=== PATIENT | male | born 1930 | race Caucasian/White ===

== ENCOUNTER → 2016-11-16 | Outpatient (CLI) | payer OTHER, MEDICARE ==
[~2016-11-16] VITALS: Ht 165.1 cm; Wt 60.3 kg
[~2016-11-16] MED LIST: ACCUPRIL PO; ALENDRONATE PO; APAP500 PO; ASPIR 8181 MG PO; ASPIRIN EC81 M1 PO; ATORVASTATIN CA40 MG PO; CENTRUM SILVER1 EAC1 PO; COLACE100 MG PO; FISH OIL 1,2001 EAC3 PO; FLEXERIL PO; FLOMAX PO; FLOMAX0.4 MG PO; HYDROCHLOROTH12.5 M1 PO; HYDROCODONE-AP1 EAC6 PO; HYDRODIURIL PO; KEFLEX250 MG PO; LASIX 40 MG TAB40 M2 PO; LIPITOR40 MG PO; LODINE 200MG C200 M1 PO; LODINE PO; LODINE XL400 MG PO; LODINE300 MG PO; MICROZIDE12.5 MG PO; MIRALAX255 GM PO; NORVASC10 MG PO; PEPCID20 MG PO; PLAVIX 75 MG TA75 MG PO; POTASSIUM20 PO; QUINU10 PD PO; TAMSULOSIN HCL0.4 M1 PO; TRAMADOL 50 MG50 MG PO; TRAVATAN 0.004%5 ML; VIACTIV MULTI-1 EACH; VITAMIN D1000 UNI2 PO; VITAMIN D2000 UNI1 PO; XALATAN2.5 ML OPHTHALMIC
--- NOTE | ~2016-11-16 | HPC ---
[facility] [address] [place] [address] PAIN MANAGEMENT CONSULTATION Name: UMAIR POLANCO Room #: REG WILLI Virgen#: [id number] Admission: 11/16/16 Attend Phys: Yair Morgan DO Discharge: Date of : 34 Report #: [id number] THIS REPORT FOR: //name// CC: Balta Morgan HISTORY OF PRESENT ILLNESS: The patient is a very pleasant 85-year-old retired [employer], well known to the pain clinic. He has been treated for symptomatic lumbar radiculopathy secondary to spinal stenosis and fusion, history of left sacroiliac joint dysfunction by history. He was given a left L3-L4 transforaminal epidural injection on 04/06/2016, had only nominal relief, 25% or so, but does note, however, that radicular pain is fairly nominal. His primary pain now is pain in the left low back, it is in the SI area. He does have lumbar fusion at L4-L5. He does have a positive Miguel test on the left with a modestly antalgic gait. Straight leg raise is negative. 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 RECOMMENDATIONS: Left SI joint injection under fluoroscopy. Follow up as needed. Continue core strengthening, we talked about doing plank-type exercises. PROCEDURE NOTE: Left SI joint injection under fluoroscopy. After written informed consent was obtained, the patient taken to the fluoroscopy suite, placed in a prone position. After sterile prep and drape, skin wheal was raised. A 22-gauge stylet needle was placed to contact the inferior aspect of the left SI joint. Negative aspiration was accomplished, 40 mg triamcinolone plus 2 mL of 0.5% preservative-free bupivacaine was injected into and around the left SI joint. Needle was removed. The area was cleansed, Band-Aids applied. The patient was monitored for an appropriate period of time, discharged in good and stable condition. By: 1603 2038 Yair Morgan DO /nt
[2016-11-16 14:31] VITALS: BP 140/61
== END | disposition home or self-care (01) ==
LOC: PAIN 07:16
DX: M53.3 Sacrococcygeal disorders, not elsewhere classified (principal); M47.897 Other spondylosis, lumbosacral region; G89.29 Other chronic pain

== ENCOUNTER → 2017-06-03 | Outpatient (CLI) | payer OTHER, MEDICARE | LOC: CAT 10:32 | DX: S33.130A Subluxation of L3/L4 lumbar vertebra, initial encounter (principal); M47.896 Other spondylosis, lumbar region; M48.061 Spinal stenosis, lumbar region without neurogenic claudication; X58.XXXA Exposure to other specified factors, initial encounter; Y93.89 Activity, other specified; Y92.89 Other specified places as the place of occurrence of the external cause; Y99.8 Other external cause status ==

== ENCOUNTER → 2017-09-24 | Outpatient (CLI) | payer OTHER, MEDICARE ==
[~2017-09-24] MED LIST changes: +IMDUR 30 MG TAB30 M1 PO; +METOPROLOL SUCC25 M1 PO; +NORVASC 5 MG TAB5 MG PO; +PRINIVIL5 MG PO; +ZETIA10 MG PO
== END ==
LOC: RAD 09:14
DX: I51.7 Cardiomegaly (principal)

== ENCOUNTER 2017-11-21 23:32 | Inpatient (IN) | payer OTHER, MEDICARE ==
[~2017-11-21] VITALS: Ht 160 cm; Wt 59.0 kg
--- NOTE | ~2017-11-21 | EKG ---
[place] [address] [facility] [place] [address] ELECTROCARDIOGRAM REPORT Name: UMAIR POLANCO Room #: 218-P ADM IN M.R.#: [id number] Admission: 11/22/17 Attend Phys: Sree Villalta MD Discharge: Date of : 34 Report #: [id number] THIS REPORT FOR: //name// [facility] Test Date: 2017-11-22 Test Time: 09:08:39 Pat Name: UMAIR POLANCO Department: Room: 218 P Gender: M Social Media Executive: Marleny ROBERT : 1930 Requested By: Marie Villarreal Order Number: [id number] MD: Faustino Sheehan Measurements Intervals [place] Rate: 90 P: 0 MD: 226 QRS: -76 QRSD: 180 T: 115 QT: 406 QTc: 497 Interpretive Statements Ventricular-paced rhythm No further analysis attempted due to paced rhythm Compared to ECG 01/28/2015 07:38:15 No significant changes Electronically Signed On 11-22-2017 13:31:20 CDT by Faustino Sheehan [email or web address] <ELECTRONICALLY SIGNED> By: Faustino Sheehan MD, [facility] 11/22/17 1331 [id number] Faustino Sheehan MD, [facility] /EPI
--- NOTE | ~2017-11-21 | 2DMMODE ---
[facility] [address] [place] [address] 2 D/M-MODE ECHOCARDIOGRAM Name: UMAIR POLANCO Room #: 218-P [facility] IN ..#: [id number] Admission: 11/22/17 Attend Phys: Sree Villalta MD Discharge: Date of : 34 Date of Service: 11/22/17 1108 Report #: [id number] THIS REPORT FOR: //name// APPROVED REPORT Study performed: 11/22/2017 10:25:10 EXAM: Comprehensive 2D, Doppler, and color-flow Echocardiogram Patient Location: Echo lab Room #: 218 Status: routine BSA: 1.62 HR: 96 bpm BP: 104/65 mmHg Rhythm: Pacemaker Other Information Study Quality: Good Indications Short of breath, HTN, elevated troponin. Hx: CABG, stent, pacemaker 2D Dimensions RVDd: 41.35 mm LVEF(%): 20.04 (>50%) IVSd: 14.16 (7-11mm) LVOT Diam: 21.05 (18-24mm) LVDd: 50.13 mm PWd: 8.22 (7-11mm) LVDs: 45.55 (25-40mm) Aortic Root: 33.51 mm Reed's LVEF: 20.04 % Volumes Left Atrial Volume (Systole) Single Plane 4CH: 68.31 mL Single Plane 2CH: 57.43 mL LA ESV Index: 44.00 mL/m2 Aortic Valve AoV Peak Baron.: 0.85 m/s AO Peak Gr.: 2.91 mmHg LVOT Max P.86 mmHg LVOT Max V: 0.68 m/s JOSÉ MIGUEL Vmax: 2.78 cm2 Mitral Valve MV Decel. Time: 125.12 ms [facility] [place] [place] [address] 2 D/M-MODE ECHOCARDIOGRAM Name: UMAIR POLANCO Room #: 218-[facility] IN ..#: [id number] Admission: 11/22/17 Attend Phys: Sree Villalta MD Discharge: Date of : 34 Date of Service: 11/22/17 1108 Report #: [id number] E Max Baron.: 1.53 m/s Pulmonary Valve PV Peak Baron.: 0.94 m/s PV Peak Gr.: 3.53 mmHg Tricuspid Valve TR Peak Baron.: 3.03 m/s RAP Estimate: 10.00 mmHg TR Peak Gr.: 36.79 mmHg PA Pressure: 47.00 mmHg Left Ventricle The left ventricle is normal size. Mild basal septal hypertrophy is present. Left ventricular systolic function is severely decreased. LVEF is 25%. Global hypokinesis, inferolateral wall akinetic This study is not technically sufficient to allow evaluation of the LV diastolic function. Right Ventricle The right ventricle is normal size. Right ventricle is hypokinetic. Pacemaker lead is present in the right ventricle. Atria Left atrium is moderately dilated. The right atrium size is normal. Aortic Valve The aortic valve is normal in structure. No aortic regurgitation. There is no aortic valvular stenosis. Mitral Valve The mitral valve is normal in structure. Moderate to severe mitral regurgitation Tricuspid Valve The tricuspid valve is normal in structure. Moderate tricuspid regurgitation. Estimated PAP is 45-50mmHg. Pulmonic Valve The pulmonary valve is normal in structure. Mild to moderate pulmonic regurgitation. Great Vessels The aortic root is normal in size. Ascending aorta is not well visualized. IVC is dilated and collapses <50% with inspiration. [facility] [address] [place] [address] 2 D/M-MODE ECHOCARDIOGRAM Name: UMAIR POLANCO Room #: 218-P [facility] IN .R.#: [id number] Admission: 11/22/17 Attend Phys: Sree Villalta MD Discharge: Date of : 34 Date of Service: 11/22/17 1108 Report #: [id number] Pericardium There is no pericardial effusion. <Conclusion> Left ventricular systolic function is severely decreased. LVEF 25%. Global hypokinesis, inferolateral wall akinetic Left atrium is moderately dilated. The aortic valve is normal in structure. No aortic valvular stenosis or insufficiency. The mitral valve is normal in structure. Moderate to severe mitral regurgitation Pacemaker lead is present in the right ventricle. Moderate tricuspid regurgitation. Estimated pulmonary artery pressure of 45-50mmHg. There is no pericardial effusion. <ELECTRONICALLY SIGNED> By: Faustino Sheehan MD, FACC 11/22/17 1108 1108 1108 Faustino Sheehan MD, FACC /INF
--- NOTE | ~2017-11-21 | EKG ---
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 : 1930 Requested By: Rena Cox Order Number: [id number] MD: Faustino Sheehan Measurements Intervals [place] Rate: 97 P: 213 NV: 199 QRS: -78 QRSD: 178 T: 108 QT: 427 QTc: 543 Interpretive Statements Ventricular-paced rhythm No further analysis attempted due to paced rhythm Compared to ECG 01/28/2015 07:38:15 No significant changes Electronically Signed On 11-22-2017 13:26:39 CDT by Faustino Sheehan [email or web address] <ELECTRONICALLY SIGNED> By: Faustino Sheehan MD, [facility] 11/22/17 1326 [id number] Faustino Sheehan MD, [facility] /EPI
[2017-11-21 23:32] VITALS: BP 115/65
[~2017-11-21 23:32] MED LIST changes: -IMDUR 30 MG TAB30 M1 PO; -METOPROLOL SUCC25 M1 PO; -NORVASC 5 MG TAB5 MG PO; -PRINIVIL5 MG PO; -ZETIA10 MG PO
[2017-11-21 23:59] LABS: ABSOLUTE NEUTROPHILS 5.1 thou/uL (1.4-8.2); BASOPHILS 0.6 % (0.0-2.0); EOSINOPHILS 1.1 % (0.0-3.0); HEMATOCRIT 39.8 % (42.0-52.0); HEMOGLOBIN 13.6 gm/dL (14.0-18.0); LYMPHOCYTES 24.5 % (24.0-44.0); MCH 32.2 pg (26.0-34.0); MCHC 34.2 g/dL (28.0-37.0); MCV 94.2 fL (80.0-100.0); MONOCYTES 9.3 % (1.0-8.0); PLATELET COUNT 238 thou/uL (150-400); POLYS 64.5 % (36.0-66.0); RBC 4.22 mil/uL (4.50-6.00); RDW 14.2 % (10.5-14.5); WBC 7.9 thou/uL (4.0-11.0)
[2017-11-22 00:07] LABS: CALCIUM 9.4 mg/dL (8.5-10.1); CREATININE 1.3 mg/dL (0.7-1.3); POTASSIUM 4.1 mmol/L (3.5-5.1)
[2017-11-22 00:15] LABS: TROPONIN-I 0.39 ng/mL (<0.06)
[2017-11-22] MEDS ORDERED: ZETIA10 MG PO (01:57)
[2017-11-22 02:06] VITALS: BP 110/62
[2017-11-22 02:30] VITALS: BP 94/81
[2017-11-22 06:30] LABS: CHOLESTEROL 100 mg/dL (<200); HDL CHOLESTEROL 37 mg/dL (>40); LDL CHOLESTEROL 40 mg/dL (<100); TC:HDL 2.7 Ratio (Not establshd); TRIGLYCERIDE 118 mg/dL (<150); VLDL 24 mg/dL (<40)
[2017-11-22 07:15] VITALS: BP 104/65
[2017-11-22 11:22] VITALS: BP 99/52
[2017-11-22 15:32] VITALS: BP 97/56
[2017-11-22 21:08] LABS: GLYCOHEMOGLOBIN (HGB A1C) 5.7 % (4.8-5.6)
[2017-11-22 22:02] VITALS: BP 103/67
[2017-11-23 04:31] VITALS: BP 103/65
[2017-11-23 07:52] VITALS: BP 114/71
[2017-11-23 10:46] VITALS: BP 106/69
[2017-11-23] MEDS ORDERED: IMDUR 30 MG TAB30 M1 PO (10:49)
[2017-11-23] MEDS ORDERED: METOPROLOL SUCC25 M1 PO (10:50)
[2017-11-23] MEDS ORDERED: PRINIVIL5 MG PO (10:51)
[2017-11-23] MEDS ORDERED: NORVASC 5 MG TAB5 MG PO (10:51)
[2017-11-23 11:00] VITALS: BP 106/69
== END 2017-11-23 11:21 | disposition home or self-care (01) | DRG 281 ==
LOC: ER 23:32 → EROBS 11-22 01:27 → 2N 11-22 01:27
PROVIDERS: Emergency Medicine; Nurse Practitioner Acute Care
PROC: B24BZZ4 Ultrasonography of Heart with Aorta, Transesophageal (ICD-10-PCS; principal; 2017-11-22)
DX: I21.4 Non-ST elevation (NSTEMI) myocardial infarction (principal); E66.2 Morbid (severe) obesity with alveolar hypoventilation; I44.2 Atrioventricular block, complete; I10 Essential (primary) hypertension; E78.00 Pure hypercholesterolemia, unspecified; I25.10 Atherosclerotic heart disease of native coronary artery without angina pectoris; K21.9 Gastro-esophageal reflux disease without esophagitis; N40.0 Benign prostatic hyperplasia without lower urinary tract symptoms; Z95.0 Presence of cardiac pacemaker; I25.2 Old myocardial infarction; Z68.23 Body mass index [BMI] 23.0-23.9, adult; Z95.5 Presence of coronary angioplasty implant and graft; Z95.1 Presence of aortocoronary bypass graft; Z79.02 Long term (current) use of antithrombotics/antiplatelets; Z79.82 Long term (current) use of aspirin; Z79.899 Other long term (current) drug therapy; Z91.048 Other nonmedicinal substance allergy status; Z82.49 Family history of ischemic heart disease and other diseases of the circulatory system
CPT/HCPCS: 10081